=== PATIENT | male | born 1935 | race Caucasian/White ===

== ENCOUNTER 2023-10-02 14:34 | Emergency (ER) | payer MEDICARE ==
[~2023-10-02] VITALS: Ht 167.6 cm; Wt 77.3 kg
[~2023-10-02 14:34] MED LIST: AMOXICILLIN 8751 TAB PO; NO HOME MEDICATIONS; NORCO 325 MG-51 TAB PO; VALIUM 5MG T5 MG/TAB PO
[2023-10-02 14:40] VITALS: TEMP 97.9
[2023-10-02] MEDS ORDERED: NS 500 ML IV ONE (15:30)
[2023-10-02 15:43] LABS: BASO % 0.4 % (0.0-2.0); EOS # 0.1 K/mm3 (0.0-0.7); EOS % 1.1 % (0.0-4.0); GRAN # 4.9 K/mm3 (1.4-6.5); GRAN % 67.8 % (42.2-75.2); HEMOGLOBIN 15.9 g/dl (13.5-18.0); LYMPH % 14.4 % (20.0-51.0); MEAN CELL VOLUME 90 fl (80.0-100.0); MEAN CORPUSCULAR HEMOGLOBIN 31 pg (27-31); MEAN CORPUSCULAR HGB CONC 35 g/dl (33.0-37.0); MEAN PLATELET VOLUME 11.5 fl (7.4-10.4); MONO # 1.1 K/mm3 (0.1-0.6); MONO % 14.9 % (1.7-9.3); PLATELET COUNT 180 K/mm3 (130-400); RED BLOOD COUNT 5.13 M/mm3 (4.20-5.60); REDCELL DISTRIBUTION WIDTH-CV 13.3 % (11.5-14.5)
[2023-10-02 15:52] LABS: INR 1.2 (0.8-3.0); PROTHROMBIN TIME 12.6 SECONDS (9.7-12.8)
[2023-10-02 16:02] LABS: ALANINE AMINOTRANSFERASE 22 U/L (0-55); ALKALINE PHOSPHATASE 83 U/L (40-150); ANION GAP 24 mmol/L (7-16); AST,SGOT 40 U/L (5-34); BILIRUBIN,TOTAL 1.2 mg/dL (0.2-1.2); BLOOD UREA NITROGEN 21 mg/dL (8-26); CALCIUM 9.8 mg/dL (8.4-10.2); CHLORIDE 104 mmol/L (98-107); CREATININE, serum 1.35 mg/dL (0.72-1.25); GLUCOSE 239 mg/dL (70-99); SODIUM 141 mmol/L (136-145); TOTAL PROTEIN 8.2 gm/dL (6.2-8.1)
[2023-10-02 16:04] LABS: D-DIMER < 200.00 ng/mLDDu (200-230)
[2023-10-02 16:05] LABS: CARBON DIOXIDE 13 mmol/L (23-31)
[2023-10-02 16:14] LABS: TROPONIN-I < 0.010 ng/mL (0.00-0.033)
[2023-10-02 16:30] LABS: COLLECTION METHOD CLEAN CATCH
[2023-10-02 16:35] LABS: URINE APPEARANCE CLEAR (CLEAR/HAZY); URINE BLOOD NEGATIVE (NEGATIVE); URINE COLOR YELLOW (YELLOW); URINE GLUCOSE NEGATIVE (NEGATIVE); URINE KETONE NEGATIVE (NEGATIVE); URINE NITRATE NEGATIVE (NEGATIVE); URINE PROTEIN(semi-quant) NEGATIVE (NEGATIVE)
[2023-10-02] MEDS ORDERED: NORCO 325 MG-51 TAB PO (19:31)
[2023-10-02] MEDS ORDERED: Home HYDROcodone/Acetaminophen 5/325 MG #4 TABS/PACK PO ONE (19:45)
[2023-10-02 19:56] VITALS: BP 150/68; PULSE 81
== END 2023-10-02 19:42 | disposition home or self-care (01) ==
LOC: COL.ER 14:34
PROVIDERS: Emergency Medicine
DX: E86.0 Dehydration (principal); M54.2 Cervicalgia; R20.2 Paresthesia of skin; E87.20 Acidosis, unspecified; Z87.891 Personal history of nicotine dependence; Z98.890 Other specified postprocedural states
CPT/HCPCS: J7040